=== PATIENT | female | born 1955 | race Caucasian/White ===

== ENCOUNTER 2016-08-24 18:03 | Emergency (ER) | payer BC, MEDICARE ==
[2016-08-24] MEDS ORDERED: OPTIRAY 350 100 ML VIAL HMH IV ONE (18:04)
== END 2016-08-25 02:39 | disposition home or self-care (01) ==
LOC: ER 18:03
DX: S39.013A Strain of muscle, fascia and tendon of pelvis, initial encounter (principal); F17.290 Nicotine dependence, other tobacco product, uncomplicated; Z85.3 Personal history of malignant neoplasm of breast
CPT/HCPCS: 36415; 74177; 80053; 81003; 85025